=== PATIENT | female | born 1960 | race Caucasian/White ===

== ENCOUNTER 2017-11-28 11:13 | Outpatient (CLI) | payer BC ==
--- NOTE | 2017-11-28 13:13 | RAD ---
2 VIEWS LUMBAR SPINE: Date: 11/28/17 HISTORY: Lumbar radiculopathy. Status post lumbar fusion. COMPARISON: None. FINDINGS: There are five lumbar-type vertebral bodies. There is a left-sided unilateral transpedicular screw at L4 and L5. No perihardware lucency. Disc prosthesis at L4-L5. There is anterolisthesis of L5 upon S1 , measuring 5.0 mm. Midline skin noy are noted. IMPRESSION: 1. Grade I anterolisthesis of L5 upon S1. 2. Postsurgical changes with fusion at L4-L5. POS: [facility]
== END 2017-11-28 11:14 | disposition home or self-care (01) ==
LOC: TBSIIMAG 11:13
PROVIDERS: ATTEND Neurological Surgery
DX: M54.16 Radiculopathy, lumbar region (principal); M43.17 Spondylolisthesis, lumbosacral region; Z98.890 Other specified postprocedural states; Z98.1 Arthrodesis status
CPT/HCPCS: 72100

== ENCOUNTER 2018-01-09 15:23 | Outpatient (CLI) | payer BC ==
--- NOTE | 2018-01-09 15:55 | RAD ---
LUMBAR SPINE SERIES 2 VIEWS: HISTORY: Followup surgery. COMPARISON: 11/28/17 study. FINDINGS: The bones appear slightly demineralized. Vertebral bodies maintain normal height. Degenerative oste ophytes are present. Left unilateral pedicle screws are seen at the L4-5 level. Markers of a disk i mplant are within the confines of the disk level. IMPRESSION: Stable postop changes of the spine. POS: [facility]
== END 2018-01-09 15:24 | disposition home or self-care (01) ==
LOC: TBSIIMAG 15:23
PROVIDERS: ATTEND Neurological Surgery
DX: M51.36 Other intervertebral disc degeneration, lumbar region (principal); Z98.890 Other specified postprocedural states
CPT/HCPCS: 72100